=== PATIENT | female | born 1985 | race Caucasian/White ===

== ENCOUNTER 2019-06-23 12:44 | Emergency (ER) | payer BC ==
[2019-06-23 12:51] VITALS: TEMP 98
--- NOTE | 2019-06-23 13:02 | ED ---
Lower Extremity Injury HPI - General Chief Complaint: Extremity Injury, Lower Stated Complaint: poss blood clot/sent by pcp Time Seen by Provider: 06/23/19 12:54 Source: patient Mode of arrival: ambulatory Limitations: no limitations - History of Present Illness Initial Comments: Patient is a 33-year-old female presenting to the emergency Department with complaints of pain in her left calf for the past 3 days. Patient is currently 10 weeks , and no complications thus far, other than nausea. . She sees a line builder in [place]. Patient states she noticed pain for the past 3-4 days and then yesterday noticed some swelling. Patient had a conference with her PCP today and recommended she come in to the ER to be evaluated for DVT. Sh e denies any increase in activity or any injuries to the calf that could explain the pain. Patient denies history of blood clots. She has had no recent travel. She denies recent fever, chills, chest pain, shortness of breath. She has no other complaints at this time. - Related Data Previous Rx's Medication Instructions Recorded Enoxaparin [Lovenox] 120 mg SQ Q12H 30 Days #60 syringe 06/23/19 Allergies Allergy/AdvReac Type Severity Reaction Status Date / Time No Known Allergies Allergy Verified 06/23/19 12:51 Review of Systems ROS Statement: Those systems with pertinent positive or pertinent negative responses have been documented in the HPI. ROS Other: All systems not noted in ROS Statement are negative. Past Medical History Past Medical History: No Reported History History of Any Multi-Drug Resistant Organisms: None Reported Additional Past Surgical History / Comment(s): cyst removed from neck Past Psychological History: No Psychological Hx Reported Smoking Status: Never smoker Past Alcohol Use History: None Reported Past Drug Use History: None Reported General Exam - General Exam Comments Initial Comments: GENERAL: Well-appearing, well-nourished and in no acute distress. HEAD: Atraumatic, normocephalic. EYES: Pupils equal round and reactive to light, extraocular movements intact, sclera anicteric, conjunctiva are normal. ENT: Moist mucous membranes. NECK: Normal range of motion, supple without lymphadenopathy or JVD. LUNGS: Breath sounds clear to auscultation bilaterally and equal. No wheezes rales or rhonchi. HEART: Regular rate and rhythm without murmurs, rubs or gallops. ABDOMEN: Soft, nontender, normoactive bowel sounds. No guarding, no rebound. No masses appreciated. : Deferred EXTREMITIES: Normal range of motion of bilateral lower extremity. No clubbing or cyanosis. Pain with palpation of the left calf as well as a mild increase in swelling when compared to the right lower extremity. Neurovascular intact. NEUROLOGICAL: Normal speech, normal gait. PSYCH: Normal mood, normal affect. SKIN: Warm, Dry, normal turgor, no rashes or lesions noted. Limitations: no limitations Course Vital Signs 06/23/19 06/23/19 12:47 15:34 Temperature 98.0 F 98.0 F Pulse Rate 108 H 88 Respiratory 18 16 Rate Blood Pressure 143/79 111/80 O2 Sat by Pulse 98 99 Oximetry Medical Decision Making - Medical Decision Making Patient is a 33-year-old female, currently 10 weeks , presenting to rule out DVT of left lower extremity. She's had pain and swelling for the past 4 days. No history of blood clots. Ultrasound of the left lower extremity is positive for DVT starting at the mid popliteal extending to the distal portion. After confirmation of acute DVT, lab work and a ultrasound was ordered to confirm IUP. Coags are normal, kidney function is normal, hCG Quant is 72,000. Urine is normal. Ultrasound does reveal an IUP, heart rate was 175. Patient was given 120 mg subq Lovenox in the ER. She'll be given prescription to continue with Lovenox every 12 hours. She will follow-up with her ANIMAL CYTOLOGIST. She is stable for discharge. Case discussed in detail with Dr. Dorado. - Lab Data Result diagrams: 06/23/19 14:30 06/23/19 14:30 Lab Results 06/23/19 06/23/19 06/23/19 Range/Units 14:30 14:30 14:30 WBC 10.5 (3.8-10.6) k/uL RBC 4.54 (3.80-5.40) m/uL Hgb 13.6 (11.4-16.0) gm/dL Hct 41.3 (34.0-46.0) % MCV 91.2 (80.0-100.0) fL MCH 29.9 (25.0-35.0) pg MCHC 32.8 (31.0-37.0) g/dL RDW 13.6 (11.5-15.5) % Plt Count 223 (150-450) k/uL Neutrophils % 81 % Lymphocytes % 12 % Monocytes % 4 % Eosinophils % 2 % Basophils % 0 % Neutrophils # 8.4 H (1.3-7.7) k/uL Lymphocytes # 1.3 (1.0-4.8) k/uL Monocytes # 0.4 (0-1.0) k/uL Eosinophils # 0.2 (0-0.7) k/uL Basophils # 0.0 (0-0.2) k/uL PT 10.1 (9.0-12.0) sec INR 1.0 (<1.2) APTT 22.5 (22.0-30.0) sec Sodium 135 L (137-145) mmol/L Potassium 3.9 (3.5-5.1) mmol/L Chloride 103 (98-107) mmol/L Carbon Dioxide 24 (22-30) mmol/L Anion Gap 8 mmol/L BUN 10 (7-17) mg/dL Creatinine 0.43 L (0.52-1.04) mg/dL Est GFR (CKD-EPI)AfAm >90 (>60 ml/min/1.73 sqM) Est GFR (CKD-EPI)NonAf >90 (>60 ml/min/1.73 sqM) Glucose 96 (74-99) mg/dL Calcium 9.6 (8.4-10.2) mg/dL HCG, Quant 36809.3 mIU/mL Urine Color Urine Appearance (Clear) Urine pH (5.0-8.0) Ur Specific [place] (1.001-1.035) Urine Protein (Negative) Urine Glucose (UA) (Negative) Urine Ketones (Negative) Urine Blood (Negative) Urine Nitrite (Negative) Urine Bilirubin (Negative) Urine Urobilinogen (<2.0) mg/dL Ur Leukocyte Esterase (Negative) 06/23/19 Range/Units 14:32 WBC (3.8-10.6) k/uL RBC (3.80-5.40) m/uL Hgb (11.4-16.0) gm/dL Hct (34.0-46.0) % MCV (80.0-100.0) fL MCH (25.0-35.0) pg MCHC (31.0-37.0) g/dL RDW (11.5-15.5) % Plt Count (150-450) k/uL Neutrophils % % Lymphocytes % % Monocytes % % Eosinophils % % Basophils % % Neutrophils # (1.3-7.7) k/uL Lymphocytes # (1.0-4.8) k/uL Monocytes # (0-1.0) k/uL Eosinophils # (0-0.7) k/uL Basophils # (0-0.2) k/uL PT (9.0-12.0) sec INR (<1.2) APTT (22.0-30.0) sec Sodium (137-145) mmol/L Potassium (3.5-5.1) mmol/L Chloride (98-107) mmol/L Carbon Dioxide (22-30) mmol/L Anion Gap mmol/L BUN (7-17) mg/dL Creatinine (0.52-1.04) mg/dL Est GFR (CKD-EPI)AfAm (>60 ml/min/1.73 sqM) Est GFR (CKD-EPI)NonAf (>60 ml/min/1.73 sqM) Glucose (74-99) mg/dL Calcium (8.4-10.2) mg/dL HCG, Quant mIU/mL Urine Color Yellow Urine Appearance Clear (Clear) Urine pH 7.0 (5.0-8.0) Ur Specific [place] 1.031 (1.001-1.035) Urine Protein Trace H (Negative) Urine Glucose (UA) Negative (Negative) Urine Ketones Negative (Negative) Urine Blood Negative (Negative) Urine Nitrite Negative (Negative) Urine Bilirubin Negative (Negative) Urine Urobilinogen 4.0 (<2.0) mg/dL Ur Leukocyte Esterase Negative (Negative) Disposition Clinical Impression: Acute deep vein thrombosis (DVT) of popliteal vein of left lower extremity, and not yet delivered in first trimester Disposition: HOME SELF-CARE Condition: Stable Instructions (If sedation given, give patient instructions): Deep Vein Thrombosis (ED) Additional Instructions: Please return to the Emergency Department if symptoms worsen or any other concerns. Take medications as prescribed. Follow up with ANIMAL CYTOLOGIST tomorrow. Prescriptions: Enoxaparin [Lovenox] 120 mg SQ Q12H 30 Days #60 syringe Is patient prescribed a controlled substance at d/c from ED?: No Referrals: Myles Kennedy MD [Primary Care Provider] - 1-2 days
--- NOTE | 2019-06-23 14:00 | US ---
EXAMINATION TYPE: US venous doppler duplex LE LT DATE OF EXAM: 06/23/2019 1:51 PM COMPARISON: NONE CLINICAL HISTORY: 33-year-old female pain, swelling. SIDE PERFORMED: Left TECHNIQUE: The lower extremity deep venous system is examined utilizing real time linear array sonog amari with graded compression, doppler sonography and color-flow sonography. FINDINGS: VESSELS IMAGED: External Iliac Vein (EIV) Common Femoral Vein Deep Femoral Vein Greater Saphenous Vein * Femoral Vein Popliteal Vein Small Saphenous Vein * Proximal Calf Veins (* superficial vessels) Left Leg: Positive for DVT starting at the mid popliteal and extending through distal, unable to see proximal calf veins due to swelling and large body habitus. IMPRESSION: Exam positive for DVT beginning at the mid popliteal vein and extending down. Unable to adequately as sess the proximal calf veins due to soft tissue swelling and large patient body habitus.
[2019-06-23 14:47] LABS: Basophils % (A) 0 %; Eosinophils # (A) 0.2 k/uL (0-0.7); Eosinophils % (A) 2 %; HCT 41.3 % (34.0-46.0); HGB 13.6 gm/dL (11.4-16.0); Lymphocytes # (A) 1.3 k/uL (1.0-4.8); Lymphocytes % (A) 12 %; MCH 29.9 pg (25.0-35.0); MCHC 32.8 g/dL (31.0-37.0); MCV 91.2 fL (80.0-100.0); Mean Platelet Volume 7.8; Monocytes # (A) 0.4 k/uL (0-1.0); Monocytes % (A) 4 %; Neutrophils # (A) 8.4 k/uL (1.3-7.7); Neutrophils % (A) 81 %; Platelet Count 223 k/uL (150-450); RBC 4.54 m/uL (3.80-5.40); RDW 13.6 % (11.5-15.5); WBC 10.5 k/uL (3.8-10.6)
[2019-06-23 14:55] LABS: African American GFR (CKD) >90 (>60 ml/min/1.73 sqM); Anion Gap 8 mmol/L; Blood Urea Nitrogen 10 mg/dL (7-17); Calcium 9.6 mg/dL (8.4-10.2); Carbon Dioxide 24 mmol/L (22-30); Chloride 103 mmol/L (98-107); Glucose 96 mg/dL (74-99); Non-African American GFR(CKD) >90 (>60 ml/min/1.73 sqM); Potassium 3.9 mmol/L (3.5-5.1); Sodium 135 mmol/L (137-145)
[2019-06-23 14:58] LABS: Appearance,Urine Clear (Clear); Bilirubin,Urine Negative (Negative); Blood,Urine Negative (Negative); Color,Urine Yellow; Glucose,Urine (UA) Negative (Negative); Ketones,Urine Negative (Negative); Leukocyte Esterase,Urine Negative (Negative); Nitrite,Urine Negative (Negative); Protein,Urine Trace (Negative); Specific Gravity,Urine 1.031 (1.001-1.035)
[2019-06-23 14:59] LABS: Partial Thromboplastin Time 22.5 sec (22.0-30.0); Prothrombin Time 10.1 sec (9.0-12.0)
[2019-06-23 15:34] VITALS: BP 111/80; PULSE 88; RESP 16
[2019-06-23] MEDS ORDERED: ENOXAPARIN 120 MG/0.8 ML SYRINGE SQ STA (15:51)
--- NOTE | 2019-06-23 15:55 | US ---
EXAMINATION TYPE: US OB limited DATE OF EXAM: 06/23/2019 COMPARISON: NONE CLINICAL HISTORY: 33-year-old female confirm IUP. Check for heartrate to confirm IUP. EXAM PERFORMED: Transabdominal FINDINGS: GESTATIONAL AGE / DATING Physician Established: Not yet established. Heartrate was visualized 175 bpm, viable IUP seen. HEART RATE: 175 bpm RHYTHM: Normal IMPRESSION: Limited OB ultrasound. Viable intrauterine with heart rate of 175 BPM. Measurements a nd additional assessment was not performed.
== END 2019-06-23 16:20 | disposition home or self-care (01) ==
LOC: EC 12:44
DX: O26.891 Other specified pregnancy related conditions, first trimester (principal); I82.432 Acute embolism and thrombosis of left popliteal vein; Z3A.10 10 weeks gestation of pregnancy
CPT/HCPCS: 36415; 80048; 85025; 85610; 85730; 81003; 84702; 76815; 93971; 96372; 99284; J1650

== ENCOUNTER → 2019-08-14 | Outpatient (CLI) | payer BC ==
--- NOTE | 2019-08-14 14:46 | US ---
EXAMINATION TYPE: US venous doppler duplex LE LT DATE OF EXAM: 08/14/2019 2:33 PM COMPARISON: US June 23 2019 CLINICAL HISTORY: I82.409 acute embolism and thrombosis of unspecifi. History of left popliteal DVT 2 months ago, patient on blood thinners SIDE PERFORMED: Left TECHNIQUE: The lower extremity deep venous system is examined utilizing real time linear array sonog amari with graded compression, doppler sonography and color-flow sonography. VESSELS IMAGED: External Iliac Vein (EIV) Common Femoral Vein Deep Femoral Vein Greater Saphenous Vein * Femoral Vein Popliteal Vein Small Saphenous Vein * Proximal Calf Veins (* superficial vessels) Left Leg: Appears negative for DVT Grayscale, color doppler, spectral doppler imaging performed of the deep veins of the left lower extr emity. There is normal flow, compressibility, vascular waveforms. IMPRESSION: Interval resolution of acute DVT left lower extremity at and below knee. No new acute DVT on current study.
== END | disposition home or self-care (01) ==
LOC: RADUSWWP 14:07
PROVIDERS: ATTEND Family Medicine
DX: I82.402 Acute embolism and thrombosis of unspecified deep veins of left lower extremity (principal)